=== PATIENT | female | born 1945 | race Caucasian/White ===

== ENCOUNTER 2019-05-29 18:29 | Inpatient (IN) | payer MEDICARE ==
[2019-06-14 22:41] VITALS: BP 130/73
[2019-06-15] MEDS: Vitamin B Complex w/Vitamin C Tab PO SCH (10:59)
--- NOTE | 2019-06-15 16:27 | Consultation ---
DATE OF CONSULTATION: 06/15/2019 REASON FOR CONSULT: Medical management. HISTORY OF PRESENT ILLNESS: The patient is a pleasant 73-year-old lady who was brought in to this facility for psych decompensation. She appears to be calm and relaxed. At this time is able to answer simple questions, although she is forgetful. She has a history of bipolar disorder, obsessive compulsive disorder, previous syncope, recent history of left lower extremity cellulitis, diagnosed about 4 months ago for which she had to be hospitalized and apparently was discharged to a snf for rehabilitation and IV antibiotics and also history of stage 4 malignant neoplasm of her left breast. Apparently, this happened 4 years ago, although she cannot recall 100% and underwent mastectomy and is currently on p.o. chemotherapy. She denies any complaints at this time except for her left lower extremity being somewhat reddish, unusual. As noted above, she was treated for the cellulitis and is currently receiving local wound care at a nursing facility, but she was told by her wound care nurse that the wound appears to be looking more reddish than when she came in. PAST MEDICAL HISTORY: As noted above. Past surgeries, radical mastectomy on the left side, history of CAD, sleep apnea, venous insufficiency. This is all taken from medical records. Hypothyroidism. PAST SURGICAL HISTORY: As noted above. FAMILY HISTORY: Noncontributory to this admission. SOCIAL HISTORY: Denies any tobacco, ETOH or illicit drug usage. She currently lives at snf. ALLERGIES: CODEINE, HYDROCODONE, FLAGYL, OXYCODONE, PENICILLIN G. TRANSFER MEDICATIONS: Cipro 500 mg b.i.d., famotidine 20 mg b.i.d. 5, Prozac 20 mg every day, gabapentin 300 mg b.i.d., Femara 2.5 every day, levothyroxine 112 mcg every day and vitamin B complex. REVIEW OF SYSTEMS: GENERAL: A great review of systems was unable to be done given the patient's condition, but she denies any fever, chills, any recent ailments. No weight loss. CARDIAC: No chest pain or palpitations. PULMONARY: She has a mild cough that is nonproductive, but denies any shortness of breath, any phlegm production. GASTROINTESTINAL: No bowel habit changes. GENITOURINARY: No bladder habit changes. NEUROLOGIC: No changes in vision, no headaches. Denies any syncope. MUSCULOSKELETAL: Does complain of some bilateral lower extremity pain and rigidity for which she uses a walker to ambulate. PHYSICAL EXAMINATION: VITAL SIGNS: Temperature 97.8, pulse 102, respirations 18-20, BP 135/87, satting 97% on room air. GENERAL: She is a well-developed, well-nourished female in no acute distress. HEAD AND NECK: Normocephalic, atraumatic. Pupils are reactive to light. Extraocular movements are intact. Oropharynx, moist and clear. NECK: There is no JVD or LAD. CARDIOVASCULAR: Regular rate and rhythm without any murmurs. LUNGS: Clear to auscultation bilaterally. ABDOMEN: Soft, supple, nontender, nondistended, normoactive bowel sounds. LOWER EXTREMITIES: On the left lower extremity, there is noticeable rash up to the mid shins and to the ankle area with some scaly skin, but no open wounds, no ulcers, no discharge. It is mildly warm to touch. There is 2+ pedal pulses. NEUROLOGIC: Grossly intact and nonfocal. LABORATORY DATA: Currently no labs available. IMPRESSION: 1. Acute psych decompensation. 2. History of obsessive compulsive disorder/psych disorder. 3. History of stage 4, left-sided breast cancer, status post radical mastectomy, on chemotherapy. 4. History of recent left lower extremity cellulitis. 5. Previous history of syncope. 6. Hypothyroidism. PLAN: The patient has been admitted to the [facility] for further management and care. I will get basic labs including a CBC, BMP, ESR, CRP, A1c, and lipid panel. I have also talked to the patient about commencing antibiotics for her possible recurrent cellulitis to which she is agreeable. I will start clindamycin 300 mg t.i.d. for 10 days. Continue other meds per psych. JOB# [id number]
[2019-06-15] MEDS: Escitalopram Oxalate 5 mg Tab PO SCH (21:01)
[2019-06-16] MEDS: Levothyroxine 0.112 Mg Tab PO SCH (06:57)
[2019-06-16] MEDS: Vitamin B Complex w/Vitamin C Tab PO SCH (09:20)
[2019-06-16] MEDS: Escitalopram Oxalate 5 mg Tab PO SCH (21:19)
--- NOTE | 2019-06-17 03:13 | Psychiatric Evaluation ---
DATE OF SERVICE: PSYCHIATRIC INITIAL EVALUATION AND MENTAL STATUS EXAMINATION AGE: 73. SEX: Female. PHYSICIAN: Dr. Noonan. CHIEF COMPLAINT: "I don't know why I am here." HISTORY OF PRESENT ILLNESS: The patient is a 73-year-old female, who was transferred from [facility] to [facility] after I evaluated the patient there and I placed her on hold. The patient was taken to [facility] because the patient has been acting bizarre and has been anxious and may be depressed and irritable. According to the patient's 2 sons and 1 daughter, who I interviewed in [facility], the patient was defecating on the floor and peeing on the floor in her house and she was removed from house and her children took her to a board and care facility in [place]. The patient there has been angry and threatening and also has been acting bizarre. According to the patient's son, the patient at certain time, while he was driving a few days prior to her admission, the patient tried to get out of the car while she was driving and her son had to stop the car and he called the police and the police was talking to her for almost an hour and half to convince her to get back into the car in order for the son to take her back to the facility, but she refused to get into her son's car, but finally she entered into the police car, who drove her all the way to her board and care facility. When arrived at the board and care facility, the patient refused to leave the police car for another hour trying to convince her to leave the car. The patient after that was angry with the manager equity of the facility and threatened him. She has been in angry and irritable mood lately. PAST PSYCHIATRIC HISTORY: The patient has history of what seems to be bipolar disorder versus depression and the patient was taking psychotropic medications till her psychiatrist retired and then she has been seeing different psychiatrist, but it seems that she might not be compliant with taking her medications. PAST MEDICAL HISTORY: As per ____. SOCIAL HISTORY: The patient is and was living with her who is currently ____. The patient has 2 sons and 1 daughter. She denies any alcohol or any street drug use. ALLERGIES: No known allergies. MENTAL STATUS EXAMINATION: The patient appears her stated age. Anxious. Angry. Irritable mood. Thought processes are circumstantial, but no flight of ideas. The patient denies any auditory or visual hallucinations, but seems to be preoccupied. The patient denies any suicide or homicide ideations. The patient is alert and oriented to time, place, person and situation. Intact immediate, recent and remote memory. Poor insight and poor judgment. ASSESSMENT PRIMARY DIAGNOSES: Depressive mood disorder, severe, with psychotic features. Rule out bipolar disorder, depressed episode, severe, with psychotic features. TREATMENT PLAN: We will monitor the patient's behavior and condition closely. We will start individual as well as milieu psychotherapy. We will also start the patient on Abilify and will adjust the dose. Also, we will have a family meeting to discuss further treatment plans and options. ESTIMATED LENGTH OF STAY: 5-7 days. PATIENT'S STRENGTHS AND WEAKNESSES: The patient's strength is not clear at this time. Weakness is her ineffective coping and her psychosis and agitation. AFTER DISCHARGE PLAN: Outpatient treatment and followup will continue as an outpatient. CRITERIA FOR DISCHARGE: Establish outpatient treatment plans. [facility]# [id number]
--- NOTE | 2019-06-17 06:50 | Psych Progress Note ---
Psych Progress Note - Intro Date of Progress Note: 06/16/19 - Assessment Assessment: Patient interviewed, case discussed with staff, chart and records were reviewed. Patient this morning is initiall pleasant but then states "they're all after my house and my money!" She is easily upset and starts yelling and crying. Attempted to redirect the patient. She is not able to state current president but able to state date and full name. Appears to be easily forgetful. - Vitals, I&O Vitals: Vital Signs - 24 hr 06/16/19 06/16/19 06/16/19 08:00 14:26 20:29 Temp 97.4 F 99.1 F HR 89 95 RR 19 20 20 BP 125/74 126/67 O2 Sat % 94 94 06/17/19 06:14 Temp 98.5 F HR 108 RR 20 BP 141/87 O2 Sat % 92 - Objective Psych Behavior: Report: Restless Psych Speech: Report: Coherent Psych Mood: Report: Frustrated Psych Affect: Report: Labile Psych Thought Process: Report: Loose Associations Psych Cognition: Report: Short term memory impairment Psych Insight: Report: Impaired Psych Judgement: Report: Impaired - Plan Plan: continue current treatment plan and observe behaviors. - Review of Relevant Data Review of Relevant Data: I have reviewed the following items and time kathe (where applicable) has been applied. - Medications Current Medications: Current Medications Acetaminophen (Tylenol) 650 mg PO Q4H PRN PRN Reason: Pain (Mild 1-3) Stop: 08/13/19 23:08 Escitalopram Oxalate (Lexapro) 5 mg PO HS [facility]; Protocol Stop: 08/14/19 20:59 Last Admin: 06/16/19 21:19 Dose: 5 mg Famotidine (Pepcid) 20 mg PO BID [facility] Stop: 08/14/19 09:59 Last Admin: 06/16/19 17:31 Dose: 20 mg Gabapentin (Neurontin) 300 mg PO TID [facility] Stop: 08/14/19 09:59 Last Admin: 06/16/19 21:19 Dose: 300 mg Letrozole (Femara) 2.5 mg PO DAILY [facility]; Protocol Stop: 08/14/19 09:59 Last Admin: 06/16/19 10:00 Dose: 2.5 mg Levothyroxine Sodium (Synthroid) 0.112 mg PO QDAC [facility] Stop: 08/15/19 07:29 Last Admin: 06/16/19 06:57 Dose: 0.112 mg Lorazepam (Ativan) 0.5 mg PO Q4HR PRN; Protocol PRN Reason: Anxiety Stop: 07/14/19 23:08 Vitamin B Complex/Vit C/Folic Acid (Vitamin B Complex W/Vitamin C) 1 tab PO DAILY [facility] Stop: 08/14/19 09:59 Last Admin: 06/16/19 09:20 Dose: 1 tab Zolpidem Tartrate (Ambien) 5 mg PO HS PRN PRN Reason: Insomnia Stop: 08/13/19 23:08
[2019-06-17] MEDS: Levothyroxine 0.112 Mg Tab PO SCH (06:53)
[2019-06-17] MEDS: Vitamin B Complex w/Vitamin C Tab PO SCH (09:49)
--- NOTE | 2019-06-17 19:39 | Internal Medicine Prog Note ---
Internal Medicine Subjective - Subjective Service Date: 06/17/19 (COMFORTABLE) Patient is:: awake Per staff patient has:: no adverse event Internal Medicine Objective - Physical Exam Vitals and I&O: Vital Signs Temp 98.2 F 06/17/19 14:39 Pulse 82 06/17/19 14:39 Resp 20 06/17/19 14:39 BP 140/80 06/17/19 14:39 Pulse Ox 93 06/17/19 14:39 Intake & Output 06/17/19 06/17/19 06/18/19 06:59 18:59 06:59 Intake Total 240 900 Balance 240 900 Intake: Oral 240 900 Other: # Voids 2 4 # Bowel Movements 0 Active Medications: Current Medications Acetaminophen (Tylenol) 650 mg PO Q4H PRN PRN Reason: Pain (Mild 1-3) Stop: 08/13/19 23:08 Last Admin: 06/17/19 15:03 Dose: 650 mg Escitalopram Oxalate (Lexapro) 5 mg PO HS [facility]; Protocol Stop: 08/14/19 20:59 Last Admin: 06/16/19 21:19 Dose: 5 mg Famotidine (Pepcid) 20 mg PO BID [facility] Stop: 08/14/19 09:59 Last Admin: 06/17/19 17:36 Dose: 20 mg Gabapentin (Neurontin) 300 mg PO TID [facility] Stop: 08/14/19 09:59 Last Admin: 06/17/19 14:54 Dose: 300 mg Letrozole (Femara) 2.5 mg PO DAILY [facility]; Protocol Stop: 08/14/19 09:59 Last Admin: 06/17/19 09:49 Dose: 2.5 mg Levothyroxine Sodium (Synthroid) 0.112 mg PO QDAC [facility] Stop: 08/15/19 07:29 Last Admin: 06/17/19 06:53 Dose: 0.112 mg Lorazepam (Ativan) 0.5 mg PO Q4HR PRN; Protocol PRN Reason: Anxiety Stop: 07/14/19 23:08 Vitamin B Complex/Vit C/Folic Acid (Vitamin B Complex W/Vitamin C) 1 tab PO DAILY [facility] Stop: 08/14/19 09:59 Last Admin: 06/17/19 09:49 Dose: 1 tab Zolpidem Tartrate (Ambien) 5 mg PO HS PRN PRN Reason: Insomnia Stop: 08/13/19 23:08 General: alert, NAD HEENT: NC/AT, PERRLA, EOMI Neck: Supple, No JVD, No thyromegaly, No LAD Cardiovascular: RRR, Normal S1, Normal S2 Abdomen: soft, non-tender, tender Extremities: clear, edema Internal Medicine Assmt/Plan - Assessment Assessment: 1. Acute psych decompensation. 2. History of obsessive compulsive disorder/psych disorder. 3. History of stage 4, left-sided breast cancer, status post radical mastectomy , on chemotherapy. 4. History of recent left lower extremity cellulitis. 5. Previous history of syncope. 6. Hypothyroidism. - Plan Plan: CONT WITH CURRENT SUPPORTIVE MGT/CARE CONT WITH CURRENT MEDS SCHEDULED
[2019-06-17] MEDS: Escitalopram Oxalate 5 mg Tab PO SCH (21:21)
--- NOTE | 2019-06-18 06:48 | Psych Progress Note ---
Psych Progress Note - Intro Date of Progress Note: 06/17/19 - Assessment Assessment: Patient interviewed, case discussed with staff, chart and records were reviewed. Patient remains depressed and paranoid of her family. She states everyone is trying to steal her personal items and house and thats why she is here. Still having memory difficulties, mood swings, impulsive. Poor insight. Minimzing event of jumping out of car. No side effects. - Vitals, I&O Vitals: Vital Signs - 24 hr 06/17/19 06/17/19 06/17/19 08:00 14:39 19:45 Temp 98.2 F 98 F HR 82 98 RR 19 20 20 BP 140/80 126/74 O2 Sat % 93 95 06/18/19 05:50 Temp 102.7 F HR 76 RR 18 BP 116/68 O2 Sat % 90 - Objective Psych Behavior: Report: Restless Psych Speech: Report: Coherent Psych Mood: Report: Frustrated Psych Affect: Report: Labile Psych Thought Process: Report: Loose Associations Psych Cognition: Report: Short term memory impairment Psych Insight: Report: Impaired Psych Judgement: Report: Impaired - Plan Plan: continue current treatment plan and observe behaviors. we will transition to 14 day hold for DTS GD. - Review of Relevant Data Review of Relevant Data: I have reviewed the following items and time kathe (where applicable) has been applied. - Medications Current Medications: Current Medications Acetaminophen (Tylenol) 650 mg PO Q4H PRN PRN Reason: Pain (Mild 1-3) Stop: 08/13/19 23:08 Last Admin: 06/17/19 21:21 Dose: 650 mg Acetaminophen (Tylenol) 650 mg PO Q4HR PRN PRN Reason: Temperature above 101 Stop: 08/17/19 01:19 Last Admin: 06/18/19 05:50 Dose: 650 mg Escitalopram Oxalate (Lexapro) 5 mg PO HS [facility]; Protocol Stop: 08/14/19 20:59 Last Admin: 06/17/19 21:21 Dose: 5 mg Famotidine (Pepcid) 20 mg PO BID [facility] Stop: 08/14/19 09:59 Last Admin: 06/17/19 17:36 Dose: 20 mg Gabapentin (Neurontin) 300 mg PO TID [facility] Stop: 08/14/19 09:59 Last Admin: 03/01/20 21:21 Dose: 300 mg Letrozole (Femara) 2.5 mg PO DAILY [facility]; Protocol Stop: 08/14/19 09:59 Last Admin: 06/17/19 09:49 Dose: 2.5 mg Levothyroxine Sodium (Synthroid) 0.112 mg PO QDAC [facility] Stop: 08/15/19 07:29 Last Admin: 06/17/19 06:53 Dose: 0.112 mg Lorazepam (Ativan) 0.5 mg PO Q4HR PRN; Protocol PRN Reason: Anxiety Stop: 07/14/19 23:08 Vitamin B Complex/Vit C/Folic Acid (Vitamin B Complex W/Vitamin C) 1 tab PO DAILY [facility] Stop: 08/14/19 09:59 Last Admin: 06/17/19 09:49 Dose: 1 tab Zolpidem Tartrate (Ambien) 5 mg PO HS PRN PRN Reason: Insomnia Stop: 08/13/19 23:08
[2019-06-18] MEDS: Levothyroxine 0.112 Mg Tab PO SCH (06:52)
[2019-06-18] MEDS: Vitamin B Complex w/Vitamin C Tab PO SCH (08:37)
--- NOTE | 2019-06-18 10:36 | Progress Notes ---
DATE: SUBJECTIVE: Chart was reviewed and the patient interviewed. Also discussed the patient's condition with the staff and reviewed records and labs. The patient is exhibiting repetitive activities and seems to be slightly confused. Example of those activities is washing her hands and continues to wipe them and then wash them and continue to wipe them. It does not seem like an obsessive compulsive thought, but because she also has loose associations and her thought processes at times are circumstantial and rambling. On the other hand, the patient is compliant with taking her medications and the patient denies any side effects of medications. She also continues to be interacting with peers and with others. During interview, the patient is cooperative. At times seems to be preoccupied. No major behavioral issues. ASSESSMENT: The patient still needs monitoring and also is still working on her assessment. At the same time, we will increase her Lexapro to 10 mg every day and we will continue to follow up closely. JOB# [id number]
--- NOTE | 2019-06-18 20:17 | Internal Medicine Prog Note ---
Internal Medicine Subjective - Subjective Service Date: 06/18/19 (fever noted earlier today) Patient is:: awake Per staff patient has:: no adverse event Internal Medicine Objective - Physical Exam Vitals and I&O: Vital Signs Temp 101.2 F 06/18/19 14:00 Pulse 102 06/18/19 14:00 Resp 19 06/18/19 14:00 BP 128/66 06/18/19 14:00 Pulse Ox 89 06/18/19 14:00 Intake & Output 06/18/19 06/18/19 06/19/19 06:59 18:59 06:59 Intake Total 300 1200 Balance 300 1200 Intake: Oral 300 1200 Other: # Voids 2 4 # Bowel Movements 0 1 Active Medications: Current Medications Acetaminophen (Tylenol) 650 mg PO Q4H PRN PRN Reason: Pain (Mild 1-3) Stop: 08/13/19 23:08 Last Admin: 06/17/19 21:21 Dose: 650 mg Acetaminophen (Tylenol) 650 mg PO Q4HR PRN PRN Reason: Temperature above 101 Stop: 08/17/19 01:19 Last Admin: 06/18/19 14:54 Dose: 650 mg Escitalopram Oxalate (Lexapro) 10 mg PO HS [facility]; Protocol Stop: 08/17/19 20:59 Famotidine (Pepcid) 20 mg PO BID [facility] Stop: 08/14/19 09:59 Last Admin: 06/18/19 17:00 Dose: 20 mg Gabapentin (Neurontin) 300 mg PO TID [facility] Stop: 08/14/19 09:59 Last Admin: 06/18/19 14:55 Dose: 300 mg Letrozole (Femara) 2.5 mg PO DAILY [facility]; Protocol Stop: 08/14/19 09:59 Last Admin: 06/18/19 08:37 Dose: 2.5 mg Levothyroxine Sodium (Synthroid) 0.112 mg PO QDAC [facility] Stop: 08/15/19 07:29 Last Admin: 06/18/19 06:52 Dose: 0.112 mg Lorazepam (Ativan) 0.5 mg PO Q4HR PRN; Protocol PRN Reason: Anxiety Stop: 07/14/19 23:08 Vitamin B Complex/Vit C/Folic Acid (Vitamin B Complex W/Vitamin C) 1 tab PO DAILY [facility] Stop: 08/14/19 09:59 Last Admin: 06/18/19 08:37 Dose: 1 tab Zolpidem Tartrate (Ambien) 5 mg PO HS PRN PRN Reason: Insomnia Stop: 08/13/19 23:08 General: alert, NAD HEENT: NC/AT, PERRLA, EOMI Neck: Supple, No JVD, No thyromegaly, No LAD Cardiovascular: RRR, Normal S1, Normal S2 Abdomen: soft, non-tender, tender Extremities: clear, edema Internal Medicine Assmt/Plan - Assessment Assessment: 1. Acute psych decompensation. 2. History of obsessive compulsive disorder/psych disorder. 3. History of stage 4, left-sided breast cancer, status post radical mastectomy , on chemotherapy. 4. History of recent left lower extremity cellulitis. 5. Previous history of syncope. 6. Hypothyroidism. 7. Fever-bloodc/s, U/A, flu screen Pcxr in am - Plan Plan: CONT WITH CURRENT SUPPORTIVE MGT/CARE CONT WITH CURRENT MEDS SCHEDULED PANCX, FLU SCREEN Nutritional Asmnt/Malnutr-PDOC - Dietary Evaluation Malnutrition Findings (Please click <Entered> for more info): Nutritional Asmnt/Malnutrition Start: 06/18/19 14: 34 Text: Status: Complete Freq: Protocol: Document 06/18/19 14:40 JORDON (Rec: 06/18/19 14:44 JORDON [id number]) Nutritional Asmnt/Malnutrition Patient General Information Nutritional Screening Moderate Risk Diagnosis Psychosis Pertinent Medical Hx/Surgical Hx CAD, Mastectomy on Lt side, Sleep apnea, venous insufficiency, hypothyroidism, bipolar disorder, obsessive compulsive disorder Subjective Information Consult: New Admission Pt is a 73-year-old female admitted on 06/14 d/t acting bizarre, anxious and irritable . Pt is eating an estimated 85 % of meals Per Meal/Nutrition Activity Record. Dietary is currently providing an estimated 2100 kcals and 90 gm Pro, per Pt PO intake this is providing an estimated 1800 kcals and 75gm Pro to meet 100 % kcal and 100+% Pro needs. Visited pt after lunch, pt stated she did not have a big appetite as she has a cold, pt is meeting estimated nutritional needs, adequate to support/promote wound healing . Gathered pt food preferences . Wound care consult ordered, has not been seen yet, will monitor consult notes and wound healing progress. Pt nurse, Pat, stated she had not done wound dressing yet, unable to portray wound healing progression. Anthropometrics HT: 58 WT: 205 LB (93.18 kg) ABW: 156 (71.02 kg) BMI: 31.20 (Obese) GI/ Skin Integrity GI: flat, Soft BM: 06/15 x1 I/O: 1200/Not Noted Skin: Lt Hip bruise, Rt Breast rash with erythema, RT lower extremity Rash with erythema, Buttocks erythema, reddened Yariel: 16 Diet Order: Regular Estimated Energy Needs: (Obese , ABW) 6033-7639 kcals (20-25 kcals/ kg) 60-70g Pro (0.8-1.0 g/kg) 0936-8635 ml (25-30 ml/kg) Current Diet Order/ Nutrition Support Regular Pertinent Medications Pepcid, Synthroid, Vitamin B complex with Vitamin C Pertinent Labs : Glucose 112, cholesterol 214, LDL 107 Nutritional Hx/Data Height 1.73 m Height (Calculated Centimeters) 172.7 Current Weight (lbs) 92.986 kg Weight (Calculated Kilograms) 93.0 Weight (Calculated Grams) 18365.4 [place] Body Weight 140 LB (63.64 kg) % [place] Body Weight 146 Body Mass Index (BMI) 31.1 Weight Status Obese GI Symptoms GI Symptoms None Last BM 06/15 x1 Skin Integrity/Comment: Skin: Lt Hip bruise, Rt Breast rash with erythema, RT lower extremity Rash with erythema, Buttocks erythema, reddened Yariel: 16 Wound care consult ordered, has not been seen yet, will monitor consult notes and wound healing progress. Pt nurse, Pat, stated she had not done wound dressing yet, unable to portray wound healing progression. Current %PO Good (75-100%) Estimated Nutritional Goals BEE in Kcals: Adj wt of IBW Calories/Kcals/Kg 20-25 Kcals Calculated 3132-0968 Protein: Adj wt of IBW Protein g/k.8-1.0 Protein Calculated 60-70 Fluid: ml 2305-8686 ml (25-30 ml/kg) Nutritional Problem 1. Problem Problem Obesity Etiology r/t consistent energy overconsumption Signs/Symptoms: aeb BMI >30 (31.20). Malnutrition Related to Morbid Obesity Malnutrition related to morbid obesity No Intervention/Recommendation Comments Continue Regular diet as tolerated. Expected Outcomes/Goals Expected Outcomes/Goals 1.PO intake to continue to meet >75% of estimated nutritional needs. 2.Gradual weight loss (0.5-1.0 LB/week) trending toward IBW preferred. 3.Monitor PO intake, wt, nutrition related labs, and skin integrity to trend WNL. 22.F/U as low risk in 7-10 days, 06/24-06/27
[2019-06-19] MEDS: Levothyroxine 0.112 Mg Tab PO SCH (07:17)
[2019-06-19] MEDS ORDERED: Promethazine DM 6.25/15mg-5mL 5 ML SYR PO PRN (07:51)
[2019-06-19] MEDS ORDERED: Probiotic Screen MC PRN (08:40)
[2019-06-19] MEDS ORDERED: Lactobacillus Rhamnosus GG 15 Billion CFU CAP.SPRINK PO SCH (09:00)
[2019-06-19] MEDS: Vitamin B Complex w/Vitamin C Tab PO SCH (10:01)
--- NOTE | 2019-06-19 10:49 | Progress Notes ---
DATE: SUBJECTIVE: Chart was reviewed and the patient interviewed. Also discussed the patient's condition with the staff and reviewed records and labs. The patient is calm and cooperative, but she is coughing and having slight fever. The patient also still seems to be slightly confused, but at the same time, she is able to express her needs and make her needs known. She also is still guarded and has difficulty talking about her children and about the relationship with the children and also about her . Otherwise, the patient is compliant with taking her medications and Lexapro was increased yesterday to 10 mg every day. ASSESSMENT: The patient is still depressed and slightly confused. TREATMENT PLAN: Continue monitoring her behavior. Also, family meeting is pending. [facility]# [id number]
--- NOTE | 2019-06-19 19:15 | Internal Medicine Prog Note ---
Internal Medicine Subjective - Subjective Service Date: 06/19/19 Patient seen and examined:: with staff, chart reviewed Patient is:: awake Patient Complaints of:: cough Per staff patient has:: no adverse event Internal Medicine Objective - Physical Exam Vitals and I&O: Vital Signs Temp 99.0 F 06/19/19 14:00 Pulse 89 06/19/19 14:00 Resp 20 06/19/19 14:00 BP 131/77 06/19/19 14:00 Pulse Ox 96 06/19/19 14:00 Intake & Output 06/19/19 06/19/19 06/20/19 06:59 18:59 06:59 Intake Total 240 1100 Balance 240 1100 Intake: Oral 240 1100 Other: # Voids 3 2 # Bowel Movements 0 0 Active Medications: Current Medications Acetaminophen (Tylenol) 650 mg PO Q4H PRN PRN Reason: Pain (Mild 1-3) Stop: 08/13/19 23:08 Last Admin: 06/18/19 23:23 Dose: 650 mg Acetaminophen (Tylenol) 650 mg PO Q4HR PRN PRN Reason: Temperature above 101 Stop: 08/17/19 01:19 Last Admin: 06/18/19 14:54 Dose: 650 mg Escitalopram Oxalate (Lexapro) 10 mg PO HS [facility]; Protocol Stop: 08/17/19 20:59 Last Admin: 06/18/19 20:43 Dose: 10 mg Famotidine (Pepcid) 20 mg PO BID [facility] Stop: 08/14/19 09:59 Last Admin: 06/19/19 17:34 Dose: 20 mg Gabapentin (Neurontin) 300 mg PO TID [facility] Stop: 08/14/19 09:59 Last Admin: 06/19/19 13:52 Dose: 300 mg Lactobacillus Rhamnosus (Culturelle 15b) 1 each PO DAILY [facility] Stop: 06/28/19 09:01 Last Admin: 06/19/19 10:02 Dose: 1 each Letrozole (Femara) 2.5 mg PO DAILY [facility]; Protocol Stop: 08/14/19 09:59 Last Admin: 06/19/19 10:02 Dose: 2.5 mg Levofloxacin (Levaquin) 500 mg PO DAILY [facility] Stop: 06/28/19 09:01 Last Admin: 06/19/19 10:02 Dose: 500 mg Levothyroxine Sodium (Synthroid) 0.112 mg PO QDAC [facility] Stop: 08/15/19 07:29 Last Admin: 06/19/19 07:17 Dose: 0.112 mg Lorazepam (Ativan) 0.5 mg PO Q4HR PRN; Protocol PRN Reason: Anxiety Stop: 07/14/19 23:08 Miscellaneous (Probiotic Screen) 1 ea [facility] PRN PRN PRN Reason: PROTOCOL Stop: 08/18/19 08:39 Promethazine HCl/Dextromethorphan (Phenergan Dm 6.25/15mg-5 Ml) 10 ml PO Q4H PRN PRN Reason: Cough Stop: 08/18/19 07:50 Vitamin B Complex/Vit C/Folic Acid (Vitamin B Complex W/Vitamin C) 1 tab PO DAILY [facility] Stop: 08/14/19 09:59 Last Admin: 06/19/19 10:01 Dose: 1 tab Zolpidem Tartrate (Ambien) 5 mg PO HS PRN PRN Reason: Insomnia Stop: 08/13/19 23:08 Last Admin: 06/18/19 20:43 Dose: 5 mg General: alert, NAD HEENT: NC/AT, PERRLA, EOMI Neck: Supple, No JVD, No thyromegaly, No LAD Cardiovascular: RRR, Normal S1, Normal S2 Abdomen: soft, non-tender, tender Extremities: clear, edema Internal Medicine Assmt/Plan - Assessment Assessment: 1. Flu+. Will transfer to acute hospial to treat under isolaion conditions. Tamiflu/IV abxs. 2, Fevers likely 2ry to above, Follow c/s. 3. Acute psych decompensation-stable 4. History of obsessive compulsive disorder/psych disorder. 5. History of stage 4, left-sided breast cancer, status post radical mastectomy, on chemotherapy. 6. History of recent left lower extremity cellulitis. 7. Previous history of syncope-stable. 8. Hypothyroidism-on synthroid. 7. Dispo-dc planning to acute hospital ([facility]) - Plan Plan: CONT WITH CURRENT SUPPORTIVE MGT/CARE CONT WITH CURRENT MEDS SCHEDULED PANCX, FLU SCREEN Nutritional Asmnt/Malnutr-PDOC - Dietary Evaluation Malnutrition Findings (Please click <Entered> for more info): Nutritional Asmnt/Malnutrition Start: 06/18/19 14: 34 Text: Status: Complete Freq: Protocol: Document 06/18/19 14:40 JORDON (Rec: 06/18/19 14:44 [email or web address]) Nutritional Asmnt/Malnutrition Patient General Information Nutritional Screening Moderate Risk Diagnosis Psychosis Pertinent Medical Hx/Surgical Hx CAD, Mastectomy on Lt side, Sleep apnea, venous insufficiency, hypothyroidism, bipolar disorder, obsessive compulsive disorder Subjective Information Consult: New Admission Pt is a 73-year-old female admitted on 06/14 d/t acting bizarre, anxious and irritable . Pt is eating an estimated 85 % of meals Per Meal/Nutrition Activity Record. Dietary is currently providing an estimated 2100 kcals and 90 gm Pro, per Pt PO intake this is providing an estimated 1800 kcals and 75gm Pro to meet 100 % kcal and 100+% Pro needs. Visited pt after lunch, pt stated she did not have a big appetite as she has a cold, pt is meeting estimated nutritional needs, adequate to support/promote wound healing . Gathered pt food preferences . Wound care consult ordered, has not been seen yet, will monitor consult notes and wound healing progress. Pt nurse, Pat, stated she had not done wound dressing yet, unable to portray wound healing progression. Anthropometrics HT: 58 WT: 205 LB (93.18 kg) ABW: 156 (71.02 kg) BMI: 31.20 (Obese) GI/ Skin Integrity GI: flat, Soft BM: 06/15 x1 I/O: 1200/Not Noted Skin: Lt Hip bruise, Rt Breast rash with erythema, RT lower extremity Rash with erythema, Buttocks erythema, reddened Yariel: 16 Diet Order: Regular Estimated Energy Needs: (Obese , ABW) 1663-2782 kcals (20-25 kcals/ kg) 60-70g Pro (0.8-1.0 g/kg) 0053-3111 ml (25-30 ml/kg) Current Diet Order/ Nutrition Support Regular Pertinent Medications Pepcid, Synthroid, Vitamin B complex with Vitamin C Pertinent Labs : Glucose 112, cholesterol 214, LDL 107 Nutritional Hx/Data Height 1.73 m Height (Calculated Centimeters) 172.7 Current Weight (lbs) 92.986 kg Weight (Calculated Kilograms) 93.0 Weight (Calculated Grams) 19118.4 [place] Body Weight 140 LB (63.64 kg) % [place] Body Weight 146 Body Mass Index (BMI) 31.1 Weight Status Obese GI Symptoms GI Symptoms None Last BM 06/15 x1 Skin Integrity/Comment: Skin: Lt Hip bruise, Rt Breast rash with erythema, RT lower extremity Rash with erythema, Buttocks erythema, reddened Yariel: 16 Wound care consult ordered, has not been seen yet, will monitor consult notes and wound healing progress. Pt nurse, Pat, stated she had not done wound dressing yet, unable to portray wound healing progression. Current %PO Good (75-100%) Estimated Nutritional Goals BEE in Kcals: Adj wt of IBW Calories/Kcals/Kg 20-25 Kcals Calculated 0045-4888 Protein: Adj wt of IBW Protein g/k.8-1.0 Protein Calculated 60-70 Fluid: ml 5034-9020 ml (25-30 ml/kg) Nutritional Problem 1. Problem Problem Obesity Etiology r/t consistent energy overconsumption Signs/Symptoms: aeb BMI >30 (31.20). Malnutrition Related to Morbid Obesity Malnutrition related to morbid obesity No Intervention/Recommendation Comments Continue Regular diet as tolerated. Expected Outcomes/Goals Expected Outcomes/Goals 1.PO intake to continue to meet >75% of estimated nutritional needs. 2.Gradual weight loss (0.5-1.0 LB/week) trending toward IBW preferred. 3.Monitor PO intake, wt, nutrition related labs, and skin integrity to trend WNL. 22.F/U as low risk in 7-10 days, 06/24-06/27
--- NOTE | 2019-06-20 12:30 | Diagnostic Imaging Report ---
CHEST X-RAY: AP view INDICATION: Chest congestion COMPARISON: None FINDINGS: Right sided vascular catheter is seen terminating in the SVC. Hazy density seen throughout the left mid to left lower chest with small left effusion. Postsurgical changes of the left axillary region are noted. Heart size borderline prominent. Degenerative changes of the spine are noted. IMPRESSION: Hazy density along the left mid to left lower chest region with small left effusion suspected. Although some of the hazy density may be due to overlying breast tissue, there may be pneumonia/infiltrate involving the left mid to left lower lung zone. PA and lateral views would provide for additional assessment. Postsurgical changes.
== END 2019-06-19 17:00 | disposition short-term general hospital (02) | DRG 885 ==
LOC: GERO 06-14 21:05
PROVIDERS: ADMIT Psychiatry & Neurology Psychiatry; ATTEND Psychiatry & Neurology Psychiatry
DX: F32.3 Major depressive disorder, single episode, severe with psychotic features (principal); E03.9 Hypothyroidism, unspecified; I25.10 Atherosclerotic heart disease of native coronary artery without angina pectoris; G47.30 Sleep apnea, unspecified; Z90.12 Acquired absence of left breast and nipple; Z88.5 Allergy status to narcotic agent; Z88.0 Allergy status to penicillin; Z88.8 Allergy status to other drugs, medicaments and biological substances; Z79.899 Other long term (current) drug therapy
CPT/HCPCS: 71045-TC; 83036-90; J9999; Z7610